=== PATIENT | female | born 1995 | race Caucasian/White ===

== ENCOUNTER 2022-03-02 10:29 | Inpatient (IN) | payer MEDICAID, OTHER ==
[~2022-03-02] VITALS: Ht 162.6 cm; Wt 50.8 kg
[2022-03-02] MEDS ORDERED: SODIUM CHLORIDE 0.9% 1,000 ML IV ONE (10:45)
[2022-03-02] MEDS ORDERED: LORAZEPAM 2MG/ML CPJ ONE (11:06)
[2022-03-02] MEDS ORDERED: LEVETIRACETAM 1000MG PREMIX 100 ML IV ONE (11:15)
[2022-03-02 11:39] LABS: BASOPHILS % 0.7 % (0.0-2.0); HEMATOCRIT. 44.3 % (36.0-48.0); HEMOGLOBIN. 14.5 g/dL (12.0-16.0); LYMPHOCYTES % 28.2 % (20.0-50.0); MEAN CORPUSCULAR HEMOGLOBIN 33.3 pg (28.0-32.0); MEAN CORPUSCULAR VOLUME 101.8 fL (81.0-99.0); MEAN PLATELET VOLUME 8.9 fl (7.4-10.4); MONOCYTES % 9.6 % (2.0-8.0); NEUTROPHILS % 61.5 % (40.0-76.0); PLATELET 317 x1000/uL (130-400); RED BLOOD CELL COUNT 4.35 mill/uL (4.2-5.4); RED CELL DISTRIBUTION WIDTH 13.3 % (11.6-14.6)
[2022-03-02 11:47] LABS: CHLORIDE 98 mEq/L (98-107); CLARITY URINE CLEAR (CLEAR); COLOR URINE YELLOW (YELLOW); KETONES URINE 2+ (NEGATIVE); LEUKOCYTE ESTERASE URINE NEGATIVE (NEGATIVE); NITRITE URINE NEGATIVE (NEGATIVE); OCCULT BLOOD URINE 2+ (NEGATIVE); PH URINE 5.5 (4.5-8.0); PROTEIN URINE 1+ (NEGATIVE); SPECIFIC GRAVITY URINE 1.018 (1.005-1.030); UROBILINOGEN URINE 0.2 E.U./dL (0.2-1.0)
[2022-03-02 11:49] LABS: HCG SCREEN NEGATIVE
[2022-03-02 11:55] LABS: ETHANOL BLOOD 95 mg/dL; INR 1.1; PROTHROMBIN TIME 11.3 sec (9.6-11.0)
[2022-03-02] MEDS ORDERED: POTASSIUM CHLORIDE 20MEQ TABLET SR PO ONE (12:00)
[2022-03-02] MEDS ORDERED: MAGNESIUM 1 G PREMIX 100 ML IV ONE (12:15)
[2022-03-02] MEDS ORDERED: LORAZEPAM 2MG/ML CPJ IV ONE (12:15)
[2022-03-02 12:21] LABS: *AMPHETAMINES SCREEN URINE NEGATIVE (NEGATIVE); *BARBITURATES SCREEN URINE NEGATIVE (NEGATIVE); *BENZODIAZEPINES SCREEN URINE NEGATIVE (NEGATIVE); *COCAINE SCREEN URINE NEGATIVE (NEGATIVE); METHADONE URINE SCREEN NEGATIVE (NEGATIVE); OPIATES URINE SCREEN NEGATIVE (NEGATIVE); PHENCYCLIDINE URINE SCREEN NEGATIVE (NEGATIVE)
[2022-03-02 12:45] LABS: CANNABINOID URINE SCREEN PRESUMTIVE POSITIVE (NEGATIVE)
[2022-03-02] MEDS ORDERED: CLONIDINE 0.1MG TABLET PO PRN (16:00)
[2022-03-02] MEDS ORDERED: ONDANSETRON HCL 4MG/2ML INJ IV PRN (16:00)
[2022-03-02] MEDS ORDERED: LEVETIRACETAM 500 MG in SODIUM CHLORIDE 0.9% 100 ML IV SCH (16:00)
[2022-03-02] MEDS ORDERED: DIPHENHYDRAMINE 50MG/ML VIAL IV PRN (16:00)
[2022-03-02] MEDS ORDERED: LORAZEPAM 2MG/ML CPJ IV PRN (16:00)
[2022-03-02] MEDS ORDERED: ACETAMINOPHEN 325MG TABLET PO PRN (16:00)
[2022-03-02] MEDS ORDERED: IPRATROPIUM/ALBUTEROL 0.5-3(2.5)MG/3ML NEB HHN PRN (16:00)
[2022-03-02] MEDS ORDERED: MVI, ADULT NO.1 10 ML, FOLIC ACID 1 MG, THIAMINE HCL 100 MG in SODIUM CHLORIDE 0.9% 1,0... IV SCH ×4 (17:00)
[2022-03-02 17:47] VITALS: BP 110/65
[2022-03-02 20:00] VITALS: BP 121/83
[2022-03-02] MEDS: CHLORDIAZEPOXIDE 25MG CAPSULE PO SCH (21:57)
[2022-03-02] MEDS: LEVETIRACETAM 500MG PREMIX 100 ML IV SCH (21:57)
[2022-03-03] VITALS: BP 100/59
[2022-03-03 04:00] VITALS: BP 105/64
[2022-03-03] MEDS: CHLORDIAZEPOXIDE 25MG CAPSULE PO SCH (05:45)
[2022-03-03 07:27] LABS: CHLORIDE 104 mEq/L (98-107)
[2022-03-03 07:34] LABS: BASOPHILS % 0.9 % (0.0-2.0); HEMATOCRIT. 37.5 % (36.0-48.0); HEMOGLOBIN. 12.9 g/dL (12.0-16.0); LYMPHOCYTES % 33.2 % (20.0-50.0); MEAN CORPUSCULAR HEMOGLOBIN 33.4 pg (28.0-32.0); MEAN CORPUSCULAR VOLUME 97.1 fL (81.0-99.0); MEAN PLATELET VOLUME 8.2 fl (7.4-10.4); MONOCYTES % 12.7 % (2.0-8.0); NEUTROPHILS % 52.2 % (40.0-76.0); PLATELET 206 x1000/uL (130-400); RED BLOOD CELL COUNT 3.87 mill/uL (4.2-5.4); RED CELL DISTRIBUTION WIDTH 12.9 % (11.6-14.6)
[2022-03-03 08:00] VITALS: BP 100/61
[2022-03-03] MEDS ORDERED: POTASSIUM CHLORIDE INJ 40 MEQ in DEXT 5% WATER 250 ML IV ONE (08:15)
[2022-03-03] MEDS: LEVETIRACETAM 500MG PREMIX 100 ML IV SCH (09:34)
[2022-03-03] MEDS ORDERED: POTASSIUM CHLORIDE 20MEQ TABLET SR PO NR (10:00)
[2022-03-03] MEDS ORDERED: KCL 20MEQ/100ML X 2 FOR TOTAL KCL 40MEQ/200ML IV SCH (10:00)
[2022-03-03] MEDS ORDERED: LEVETIRACETAM 500MG TABLET PO SCH (17:00)
== END 2022-03-03 17:42 | disposition home or self-care (01) | DRG 53 ==
LOC: ER 11:11 → 8WST 14:32 → EDBEDREQTM 14:35 → EDBEDREQ 14:35
PROVIDERS: ADMIT Internal Medicine; ATTEND Internal Medicine
DX: R56.9 Unspecified convulsions (principal); E83.51 Hypocalcemia; F10.139 Alcohol abuse with withdrawal, unspecified; F17.200 Nicotine dependence, unspecified, uncomplicated; Z20.822 Contact with and (suspected) exposure to COVID-19; R74.01 Elevation of levels of liver transaminase levels; Z86.16 Personal history of COVID-19; Y90.4 Blood alcohol level of 80-99 mg/100 ml
CPT/HCPCS: 36415; 71045; 80053; 80305; 80320; 81003; 82962; 83735; 84484; 84703; 85025; 87426; 87804; 93970; 99285; C9803; J1953; J2060; J3411; J3475; J3480; J3490; J7030; G0480